=== PATIENT | female | born 1930 | race Caucasian/White ===

== ENCOUNTER 2016-10-12 02:23 | Emergency (ER) | payer MEDICARE, OTHER ==
[~2016-10-12] VITALS: Ht 167.6 cm; Wt 78.0 kg
[~2016-10-12 02:23] MED LIST: BENA1TAB2 PO; CIPR500T4 PO; GLYB1TAB2; PROVASTATIN; RISE35TA
[2016-10-12 03:25] VITALS: Ht 167.6 cm; Wt 78.0 kg
--- NOTE | 2016-10-12 04:12 | ERA ---
ER Documentation Chief Complaint Date/Time DATE: 10/12/16 TIME: 04:11 Chief Complaint left leg pain HPI The patient is a 86-year-old female, presenting to the ER because of chronic left leg, worse tonight. He is 5/10, worse with walking. She recently had angioplasty of her right leg due to similar symptoms and is awaiting to have angioplasty on the left leg. She denies fever, chills, neck pain, chest pain, abdominal pain, vomiting, dysuria, diarrhea, constipation. He does not smoke nor drink Past medical history: Hypertension, diabetes mellitus, CAD, PAD Past surgical history: CABG ROS All systems reviewed and are negative except as per history of present illness. Medications Home Meds Active Scripts Hydrocodone/Acetaminophen (Santee 5-325 Tablet) 1 Each Tablet, 1 TAB PO Q6H Y for PAIN, #7 TAB Prov:FREEMAN ADHIKARI MD 10/12/16 Reported Medications Ciprofloxacin Hcl* (Ciprofloxacin Hcl*) 500 Mg Tablet, 1 TAB PO BID 07/26/12 Benazepril/Hydrochlorothiazide (Benazepril-Hctz 10-12.5 Mg Tab) 1 Tab Tablet, 1 TAB PO DAILY 04/13/12 [Provastatin] No Conflict Check 10/22/10 Glyburide, Micro-Metformin Hcl (Glyburide-Metformin) 1 Tab Tablet 10/22/10 Risedronate Sodium* (Actonel*) 35 Mg Tablet 10/22/10 Allergies Allergies: Coded Allergies: No Known Allergy (Verified , 09/24/13) PMhx/Soc History of Surgery: No Anesthesia Reaction: No Hx Neurological Disorder: No Hx Respiratory Disorders: No Hx Cardiac Disorders: Yes (diabetis, hypercholesteral) Hx Psychiatric Problems: Yes (Depression) Hx Miscellaneous Medical Probl: Yes (Diabetes, High cholesterol) Hx Alcohol Use: No Hx Substance Use: No Hx Tobacco Use: No Physical Exam Vitals Vital Signs Date Time Temp Pulse Resp B/P Pulse Ox O2 Delivery O2 Flow Rate FiO2 10/12/16 02:30 98.6 96 18 162/88 96 Physical Exam Const: No acute distress. Head: Atraumatic. Eyes: Normal Conjunctiva. ENT: Normal External Ears, Nose and Mouth. Neck: Full range of motion. No meningismus. Resp: Clear to auscultation bilaterally. Cardio: Regular rate and rhythm, no murmurs. Abd: Soft, non distended, normal bowel sounds, non tender. Skin: No petechiae or rashes. Back: No midline or flank tenderness. Ext: Minimal left calf discomfort, no erythema, no edema, no crepitus Neur: Awake and alert. No focal deficit Psych: Normal Mood and Affect. Results 24 hrs Current Medications Medications (Trade) Dose Ordered Sig/Curtis Route PRN Reason Start Time Stop Time Status Last Admin Dose Admin Acetaminophen/ Hydrocodone Bitart (Santee (5/325)) 1 tab ONCE ONCE PO 10/12/16 04:30 10/12/16 04:31 DC 10/12/16 04:41 Ondansetron HCl (Zofran Odt) 4 mg ONCE STAT ODT 10/12/16 04:18 10/12/16 04:20 DC 10/12/16 04:40 Procedures/[place] [id number] Radiology Main Line: [phone] DIAGNOSTIC IMAGING REPORT Patient: ELAYNE LITTLEJOHN : 1930 Age: 86 Sex: F MR #: [id number] DOS: 10/12/16 0418 Ordering MD: FREEMAN ADHIKARI MD Location: E/R Room/Bed: PROCEDURE: Ultrasound examination of the left lower extremity with Doppler. CLINICAL INDICATION: Left leg pain and swelling. TECHNIQUE: Multiple sonographic images of the left lower extremity veins were performed with underwood scale and color Doppler. COMPARISON: 10/30/2007. FINDINGS: The left common femoral, superficial femoral and popliteal veins demonstrate normal color flow, waveforms, compression and response to augmentation. There is no evidence of deep venous thrombosis. IMPRESSION: No evidence of deep venous thrombosis within the left lower extremity. .Dallas Garcia MD, MD Date Time Electronically viewed and signed by .Dallas Garcia MD, on 10/12/2016 05:39 .T/ CC: FREEMAN ADHIKARI MD MEDICAL MAKING DECISION: The patient is a 86-year-old female, presenting with acute on chronic left leg pain, most likely due to peripheral arterial disease. The differential diagnoses considered include but are not limited to DVT, cellulitis, venous sufficiency. He was treated with Santee 5 mg p.o. and Zofran ODT for nausea with good response Departure Diagnosis: Primary Impression: Pain of left leg Condition: Good Comments She was discharged with Santee I discussed the findings with the patient. I advised the patient to follow-up with the primary physician in about 1-2 days, sooner if needed and return if any concern. FREEMAN ADHIKARI MD Oct 12, 2016 04:12
[2016-10-12] MEDS ORDERED: ONDANSETRON (ODT) 4 MG TAB ODT STA (04:18)
[2016-10-12] MEDS ORDERED: HYDROCODONE/APAP (5/325) TAB PO ONE (04:30)
[2016-10-12] MEDS ORDERED: HYDR-906 PO (05:36)
--- NOTE | 2016-10-12 05:40 | RADRPT ---
PROCEDURE: Ultrasound examination of the left lower extremity with Doppler. CLINICAL INDICATION: Left leg pain and swelling. TECHNIQUE: Multiple sonographic images of the left lower extremity veins were performed with underwood scale and color Doppler. COMPARISON: 10/30/2007. FINDINGS: The left common femoral, superficial femoral and popliteal veins demonstrate normal color flow, wave forms, compression and response to augmentation. There is no evidence of deep venous thrombosis. IMPRESSION: No evidence of deep venous thrombosis within the left lower extremity. .Dallas Garcia MD, Date Time Electronically viewed and signed by .Dallas Garcia MD, on 10/12/2016 05:39 .T/
[2016-10-12 05:58] VITALS: BP 132/74; PULSE 68; RESP 20; TEMP 98.6
== END 2016-10-12 06:00 | disposition home or self-care (01) ==
LOC: E/R 02:23
DX: M79.605 Pain in left leg (principal); I10 Essential (primary) hypertension; E11.9 Type 2 diabetes mellitus without complications; I25.10 Atherosclerotic heart disease of native coronary artery without angina pectoris; Z87.891 Personal history of nicotine dependence; Z95.1 Presence of aortocoronary bypass graft; Z79.84 Long term (current) use of oral hypoglycemic drugs
CPT/HCPCS: 93971

== ENCOUNTER 2017-07-17 15:02 | Emergency (ER) | payer MEDICARE, OTHER ==
[~2017-07-17] VITALS: Wt 61.4 kg
[~2017-07-17 15:02] MED LIST changes: +HYDR-906 PO
--- NOTE | 2017-07-17 16:18 | ERD ---
ER Documentation Chief Complaint Chief Complaint R. LLE PAIN S/P TRAUMA X1 WK AGO AND DYSURIA HPI 86y/o female patient with history of well-controlled diabetes mellitus, presents to the emergency department with her son c/o bilateral hip pain after a mechanical ground-level fall 1 week ago landing on her buttocks. Pain is dull , rated 4/10, without radiation. The patient is concerned about a possible fracture. She also reports dysuria and mild incontinence for the last 3 days. Denies fever, chills, N/V/D. No history of previous episodes. Treatment attempted: Ibuprofen with mild improvement of the pain. ROS SYSTEMIC symptoms: no fever, chills, no night sweats, no weight loss EYE symptoms: No blurred vision, no eye discharge OTOLARYNGEAL symptoms: No hearing loss. No ear pain, no sore throat CARDIOVASCULAR symptoms: No chest pain or discomfort, no palpitations. PULMONARY symptoms: No dyspnea, no cough, no wheezing. GASTROINTESTINAL symptoms: No abdominal pain, no nausea, no vomiting, no diarrhea MUSCULOSKELETAL symptoms: Current HPI NEUROLOGY symptoms: No confusion, no syncope, no numbness or tingling. SKIN no rashes Medications Home Meds Active Scripts Ciprofloxacin Hcl* (Ciprofloxacin Hcl*) 500 Mg Tablet, 250 MG PO BID for 7 Days , TAB Prov:PAIGE KESSLER MD 07/17/17 Hydrocodone/Acetaminophen ([place]pton 5-325 Tablet) 1 Each Tablet, 1 TAB PO Q6H Y for PAIN, #12 TAB Prov:PAIGE KESSLER MD 07/17/17 Hydrocodone/Acetaminophen ([place] 5-325 Tablet) 1 Each Tablet, 1 TAB PO Q6H Y for PAIN, #7 TAB Prov:FREEMAN ADHIKARI MD 10/12/16 Reported Medications Ciprofloxacin Hcl* (Ciprofloxacin Hcl*) 500 Mg Tablet, 1 TAB PO BID 07/26/12 Benazepril/Hydrochlorothiazide (Benazepril-Hctz 10-12.5 Mg Tab) 1 Tab Tablet, 1 TAB PO DAILY 04/13/12 [Provastatin] No Conflict Check 10/22/10 Glyburide, Micro-Metformin Hcl (Glyburide-Metformin) 1 Tab Tablet 10/22/10 Risedronate Sodium* (Actonel*) 35 Mg Tablet 10/22/10 Allergies Allergies: Coded Allergies: No Known Allergy (Verified , 07/17/17) PMhx/Soc History of Surgery: No Anesthesia Reaction: No Hx Neurological Disorder: No Hx Respiratory Disorders: No Hx Cardiac Disorders: Yes Hx Psychiatric Problems: Yes (Depression) Hx Miscellaneous Medical Probl: Yes (Diabetes, High cholesterol) Hx Alcohol Use: No Hx Substance Use: No Hx Tobacco Use: No Physical Exam Vitals Vital Signs Date Time Temp Pulse Resp B/P Pulse Ox O2 Delivery O2 Flow Rate FiO2 07/17/17 18:28 76 18 162/73 96 Room Air 07/17/17 15:05 98.0 85 20 158/74 99 Physical Exam Patient is in no acute distress, vital signs stable. Alert and fully oriented. EYES: PERRLA, EOMI, Sclera and conjunctiva appear normal. EARS: Canals clear, tympanic membranes WNL THROAT: Normal oropharynx. NECK: Supple, No lymphadenopathy. Full ROM without pain or tenderness. HEART: RRR, no rubs, murmurs, clicks or gallops. LUNGS: Clear to auscultation. ABDOMEN: Soft, non-tender without masses or hepatosplenomegaly. EXTREMITIES: No edema bilaterally. MUSC: Mild tenderness of the sacrum. full ROM, no deformity, normal back exam Results 24 hrs Laboratory Tests Test 07/17/17 16:48 Urine Color YELLOW Urine Clarity CLEAR Urine pH 6.0 Urine Specific [place] 1.012 Urine Ketones NEGATIVEmg/dL Urine Nitrite NEGATIVEmg/dL Urine Bilirubin NEGATIVEmg/dL Urine Urobilinogen NEGATIVEmg/dL Urine Leukocyte Esterase 2+Kassandra/ul Urine Microscopic RBC 0/HPF Urine Microscopic WBC 64/HPF Urine Bacteria FEW/HPF Urine Hemoglobin NEGATIVEmg/dL Urine Glucose NEGATIVEmg/dL Urine Total Protein NEGATIVEmg/dl Current Medications Medications (Trade) Dose Ordered Sig/Curtis Route PRN Reason Start Time Stop Time Status Last Admin Dose Admin Ketorolac Tromethamine (Toradol) 15 mg ONCE STAT IM 07/17/17 16:27 07/17/17 16:31 DC 07/17/17 16:38 [place] [id number] Radiology Main Line: [phone] DIAGNOSTIC IMAGING REPORT Patient: EALYNE LITTLEJOHN : 1930 Age: 86 Sex: F MR #: [id number] DOS: 07/17/17 1627 Ordering MD: PAIGE KESSLER MD Location: FTE Room/Bed: PROCEDURE: XR Pelvis. CLINICAL INDICATION: Pelvic pain. History of fall TECHNIQUE: Single AP view of the pelvis was obtained. COMPARISON: 12/04/2007 FINDINGS: Diffuse osteopenia is seen. No acute displaced fracture or dislocation is seen. 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 Degenerative changes in the lower lumbar spine and sacroiliac joints is seen. The soft tissue structures are intact. Vascular calcifications are seen. IMPRESSION: 1. No acute displaced fracture or dislocation. 2. 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 RPTAT: HPNM Physician Fly Date Time Electronically viewed and signed by Nick Ward Physician on 07/17/2017 17 :38 / CC: PAIGE KESSLER MD Procedures/MDM 86y/o female patient with history of type 2 diabetes mellitus, presents to the ED c/o hip pain and dysuria for 3 days. Vital signs stable, Physical exam unremarkable. Differential diagnosis include but not limited to: UTI, hip contusion, ligament/tendon injury, arthrosis, arthritis, less likely hip fracture. Pertinent Data: Labs: UA: With pyuria, 2+ leuk adilene X-Rays: IMPRESSION: 1. No acute displaced fracture or dislocation. 2. 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 Physical examination and clinical presentation consistent most likely with UTI and hip pain secondary to fall without evidence of fracture. During the ED course the patient received treatment with Toradol IM presenting overall improvement of the symptoms. Results and clinical impression discussed with with the patient who agrees with management. The patient is stable to be treated outpatient and will be discharged home with a Rx for ciprofloxacin and Hampton as needed for severe pain. Side effects of prescribed narcotic medications (drowsiness, constipation, habituation) were reviewed. If symptoms persist, worsen or new symptoms develop, then patient is instructed to follow-up with the primary care provider. If the patient is unable to see the primary care provider, then return to the ED immediately. Departure Diagnosis: Primary Impression: UTI (urinary tract infection) Additional Impressions: Hip pain, acute Fall Condition: Stable Additional Instructions: Muchas tim por [facility] para harry servicio. Esperamos que en harry visita a la kelsey de emergencia harry problema medico haya sido solucionado y que se sienta mucho mejor. Para estar seguros que harry mejoria sigue en proceso, le pedimos el favor de hacer nelda aminata de seguimiento medico con harry doctor primario en los proximos 2-4 coles. Lleve con usted estos documentos y las medicinas recetadas. Si lorene sintomas empeoran y no puede flavio a harry doctor, por favor regrese a kelsey de emergencia. En booker que usted no tenga un mdico de atencin primaria: Llame al mdico o clnica comunitaria de referencia que aparece abajo ros las horas de consultorio para hacer nelda aminata para que le vean. CLINICAS: [facility] [phone] [facility] [phone] [address] [facility] [phone] [facility] [phone] [place] [id number] [phone] [facility]. [phone] PAIGE ROA MD Jul 17, 2017 16:17
--- NOTE | 2017-07-17 16:18 | ERD ---
ER Documentation Chief Complaint Chief Complaint R. LLE PAIN S/P TRAUMA X1 WK AGO AND DYSURIA HPI 86y/o female patient with history of well-controlled diabetes mellitus, presents to the emergency department with her son c/o bilateral hip pain after a mechanical ground-level fall 1 week ago landing on her buttocks. Pain is dull , rated 4/10, without radiation. The patient is concerned about a possible fracture. She also reports dysuria and mild incontinence for the last 3 days. Denies fever, chills, N/V/D. No history of previous episodes. Treatment attempted: Ibuprofen with mild improvement of the pain. ROS SYSTEMIC symptoms: no fever, chills, no night sweats, no weight loss EYE symptoms: No blurred vision, no eye discharge OTOLARYNGEAL symptoms: No hearing loss. No ear pain, no sore throat CARDIOVASCULAR symptoms: No chest pain or discomfort, no palpitations. PULMONARY symptoms: No dyspnea, no cough, no wheezing. GASTROINTESTINAL symptoms: No abdominal pain, no nausea, no vomiting, no diarrhea MUSCULOSKELETAL symptoms: Current HPI NEUROLOGY symptoms: No confusion, no syncope, no numbness or tingling. SKIN no rashes Medications Home Meds Active Scripts Ciprofloxacin Hcl* (Ciprofloxacin Hcl*) 500 Mg Tablet, 250 MG PO BID for 7 Days , TAB Prov:PAIGE KESSLER MD 07/17/17 Hydrocodone/Acetaminophen ([place] 5-325 Tablet) 1 Each Tablet, 1 TAB PO Q6H Y for PAIN, #12 TAB Prov:PAIGE KESSLER MD 07/17/17 Hydrocodone/Acetaminophen ([place] 5-325 Tablet) 1 Each Tablet, 1 TAB PO Q6H Y for PAIN, #7 TAB Prov:FREEMAN ADHIKARI MD 10/12/16 Reported Medications Ciprofloxacin Hcl* (Ciprofloxacin Hcl*) 500 Mg Tablet, 1 TAB PO BID 07/26/12 Benazepril/Hydrochlorothiazide (Benazepril-Hctz 10-12.5 Mg Tab) 1 Tab Tablet, 1 TAB PO DAILY 04/13/12 [Provastatin] No Conflict Check 10/22/10 Glyburide, Micro-Metformin Hcl (Glyburide-Metformin) 1 Tab Tablet 10/22/10 Risedronate Sodium* (Actonel*) 35 Mg Tablet 10/22/10 Allergies Allergies: Coded Allergies: No Known Allergy (Verified , 07/17/17) PMhx/Soc History of Surgery: No Anesthesia Reaction: No Hx Neurological Disorder: No Hx Respiratory Disorders: No Hx Cardiac Disorders: Yes Hx Psychiatric Problems: Yes (Depression) Hx Miscellaneous Medical Probl: Yes (Diabetes, High cholesterol) Hx Alcohol Use: No Hx Substance Use: No Hx Tobacco Use: No Physical Exam Vitals Vital Signs Date Time Temp Pulse Resp B/P Pulse Ox O2 Delivery O2 Flow Rate FiO2 07/17/17 18:28 76 18 162/73 96 Room Air 07/17/17 15:05 98.0 85 20 158/74 99 Physical Exam Patient is in no acute distress, vital signs stable. Alert and fully oriented. EYES: PERRLA, EOMI, Sclera and conjunctiva appear normal. EARS: Canals clear, tympanic membranes WNL THROAT: Normal oropharynx. NECK: Supple, No lymphadenopathy. Full ROM without pain or tenderness. HEART: RRR, no rubs, murmurs, clicks or gallops. LUNGS: Clear to auscultation. ABDOMEN: Soft, non-tender without masses or hepatosplenomegaly. EXTREMITIES: No edema bilaterally. MUSC: Mild tenderness of the sacrum. full ROM, no deformity, normal back exam Results 24 hrs Laboratory Tests Test 07/17/17 16:48 Urine Color YELLOW Urine Clarity CLEAR Urine pH 6.0 Urine Specific [place] 1.012 Urine Ketones NEGATIVEmg/dL Urine Nitrite NEGATIVEmg/dL Urine Bilirubin NEGATIVEmg/dL Urine Urobilinogen NEGATIVEmg/dL Urine Leukocyte Esterase 2+Kassandra/ul Urine Microscopic RBC 0/HPF Urine Microscopic WBC 64/HPF Urine Bacteria FEW/HPF Urine Hemoglobin NEGATIVEmg/dL Urine Glucose NEGATIVEmg/dL Urine Total Protein NEGATIVEmg/dl Current Medications Medications (Trade) Dose Ordered Sig/Curtis Route PRN Reason Start Time Stop Time Status Last Admin Dose Admin Ketorolac Tromethamine (Toradol) 15 mg ONCE STAT IM 07/17/17 16:27 07/17/17 16:31 DC 07/17/17 16:38 [place] [id number] Radiology Main Line: [phone] DIAGNOSTIC IMAGING REPORT Patient: ELAYNE LITTLEJOHN : 1930 Age: 86 Sex: F MR #: [id number] DOS: 07/17/17 1627 Ordering MD: PAIGE KESSLER MD Location: FTE Room/Bed: PROCEDURE: XR Pelvis. CLINICAL INDICATION: Pelvic pain. History of fall TECHNIQUE: Single AP view of the pelvis was obtained. COMPARISON: 12/04/2007 FINDINGS: Diffuse osteopenia is seen. No acute displaced fracture or dislocation is seen. 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 Degenerative changes in the lower lumbar spine and sacroiliac joints is seen. The soft tissue structures are intact. Vascular calcifications are seen. IMPRESSION: 1. No acute displaced fracture or dislocation. 2. 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 RPTAT: HPNM Physician Fly Date Time Electronically viewed and signed by Nick Ward Physician on 07/17/2017 17 :38 / CC: PAIGE KESSLER MD Procedures/MDM 86y/o female patient with history of type 2 diabetes mellitus, presents to the ED c/o hip pain and dysuria for 3 days. Vital signs stable, Physical exam unremarkable. Differential diagnosis include but not limited to: UTI, hip contusion, ligament/tendon injury, arthrosis, arthritis, less likely hip fracture. Pertinent Data: Labs: UA: With pyuria, 2+ leuk adilene X-Rays: IMPRESSION: 1. No acute displaced fracture or dislocation. 2. 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 Physical examination and clinical presentation consistent most likely with UTI and hip pain secondary to fall without evidence of fracture. During the ED course the patient received treatment with Toradol IM presenting overall improvement of the symptoms. Results and clinical impression discussed with with the patient who agrees with management. The patient is stable to be treated outpatient and will be discharged home with a Rx for ciprofloxacin and [place] as needed for severe pain. Side effects of prescribed narcotic medications (drowsiness, constipation, habituation) were reviewed. If symptoms persist, worsen or new symptoms develop, then patient is instructed to follow-up with the primary care provider. If the patient is unable to see the primary care provider, then return to the ED immediately. Departure Diagnosis: Primary Impression: UTI (urinary tract infection) Additional Impressions: Hip pain, acute Fall Condition: Stable Additional Instructions: Muchas tim por [facility] para harry servicio. Esperamos que en harry visita a la kelsey de emergencia harry problema medico haya sido solucionado y que se sienta mucho mejor. Para estar seguros que harry mejoria sigue en proceso, le pedimos el favor de hacer nelda aminata de seguimiento medico con harry doctor primario en los proximos 2-4 coles. Lleve con usted estos documentos y las medicinas recetadas. Si lorene sintomas empeoran y no puede flavio a harry doctor, por favor regrese a kelsey de emergencia. En booker que usted no tenga un mdico de atencin primaria: Llame al mdico o clnica comunitaria de referencia que aparece abajo ros las horas de consultorio para hacer nelda aminata para que le vean. CLINICAS: [facility] [phone] [facility] [phone] [address] [facility] [phone] [facility] [phone] [place] [phone] [facility]. [phone] PAIGE ROA MD Jul 17, 2017 16:17
--- NOTE | 2017-07-17 16:18 | ERD ---
ER Documentation Chief Complaint Chief Complaint R. LLE PAIN S/P TRAUMA X1 WK AGO AND DYSURIA HPI 86y/o female patient with history of well-controlled diabetes mellitus, presents to the emergency department with her son c/o bilateral hip pain after a mechanical ground-level fall 1 week ago landing on her buttocks. Pain is dull , rated 4/10, without radiation. The patient is concerned about a possible fracture. She also reports dysuria and mild incontinence for the last 3 days. Denies fever, chills, N/V/D. No history of previous episodes. Treatment attempted: Ibuprofen with mild improvement of the pain. ROS SYSTEMIC symptoms: no fever, chills, no night sweats, no weight loss EYE symptoms: No blurred vision, no eye discharge OTOLARYNGEAL symptoms: No hearing loss. No ear pain, no sore throat CARDIOVASCULAR symptoms: No chest pain or discomfort, no palpitations. PULMONARY symptoms: No dyspnea, no cough, no wheezing. GASTROINTESTINAL symptoms: No abdominal pain, no nausea, no vomiting, no diarrhea MUSCULOSKELETAL symptoms: Current HPI NEUROLOGY symptoms: No confusion, no syncope, no numbness or tingling. SKIN no rashes Medications Home Meds Active Scripts Ciprofloxacin Hcl* (Ciprofloxacin Hcl*) 500 Mg Tablet, 250 MG PO BID for 7 Days , TAB Prov:PAIGE KESSLER MD 07/17/17 Hydrocodone/Acetaminophen ([place] 5-325 Tablet) 1 Each Tablet, 1 TAB PO Q6H Y for PAIN, #12 TAB Prov:PAIGE KESSLER MD 07/17/17 Hydrocodone/Acetaminophen ([place] 5-325 Tablet) 1 Each Tablet, 1 TAB PO Q6H Y for PAIN, #7 TAB Prov:FREEMAN ADHIKARI MD 10/12/16 Reported Medications Ciprofloxacin Hcl* (Ciprofloxacin Hcl*) 500 Mg Tablet, 1 TAB PO BID 07/26/12 Benazepril/Hydrochlorothiazide (Benazepril-Hctz 10-12.5 Mg Tab) 1 Tab Tablet, 1 TAB PO DAILY 04/13/12 [Provastatin] No Conflict Check 10/22/10 Glyburide, Micro-Metformin Hcl (Glyburide-Metformin) 1 Tab Tablet 10/22/10 Risedronate Sodium* (Actonel*) 35 Mg Tablet 10/22/10 Allergies Allergies: Coded Allergies: No Known Allergy (Verified , 07/17/17) PMhx/Soc History of Surgery: No Anesthesia Reaction: No Hx Neurological Disorder: No Hx Respiratory Disorders: No Hx Cardiac Disorders: Yes Hx Psychiatric Problems: Yes (Depression) Hx Miscellaneous Medical Probl: Yes (Diabetes, High cholesterol) Hx Alcohol Use: No Hx Substance Use: No Hx Tobacco Use: No Physical Exam Vitals Vital Signs Date Time Temp Pulse Resp B/P Pulse Ox O2 Delivery O2 Flow Rate FiO2 07/17/17 18:28 76 18 162/73 96 Room Air 07/17/17 15:05 98.0 85 20 158/74 99 Physical Exam Patient is in no acute distress, vital signs stable. Alert and fully oriented. EYES: PERRLA, EOMI, Sclera and conjunctiva appear normal. EARS: Canals clear, tympanic membranes WNL THROAT: Normal oropharynx. NECK: Supple, No lymphadenopathy. Full ROM without pain or tenderness. HEART: RRR, no rubs, murmurs, clicks or gallops. LUNGS: Clear to auscultation. ABDOMEN: Soft, non-tender without masses or hepatosplenomegaly. EXTREMITIES: No edema bilaterally. MUSC: Mild tenderness of the sacrum. full ROM, no deformity, normal back exam Results 24 hrs Laboratory Tests Test 07/17/17 16:48 Urine Color YELLOW Urine Clarity CLEAR Urine pH 6.0 Urine Specific [place] 1.012 Urine Ketones NEGATIVEmg/dL Urine Nitrite NEGATIVEmg/dL Urine Bilirubin NEGATIVEmg/dL Urine Urobilinogen NEGATIVEmg/dL Urine Leukocyte Esterase 2+Kassandra/ul Urine Microscopic RBC 0/HPF Urine Microscopic WBC 64/HPF Urine Bacteria FEW/HPF Urine Hemoglobin NEGATIVEmg/dL Urine Glucose NEGATIVEmg/dL Urine Total Protein NEGATIVEmg/dl Current Medications Medications (Trade) Dose Ordered Sig/Curtis Route PRN Reason Start Time Stop Time Status Last Admin Dose Admin Ketorolac Tromethamine (Toradol) 15 mg ONCE STAT IM 07/17/17 16:27 07/17/17 16:31 DC 07/17/17 16:38 [place] [id number] Radiology Main Line: [phone] DIAGNOSTIC IMAGING REPORT Patient: ELAYNE LITTLEJOHN : 1930 Age: 86 Sex: F MR #: [id number] DOS: 07/17/17 1627 Ordering MD: PAIGE KESSLER MD Location: [facility]TE Room/Bed: PROCEDURE: XR Pelvis. CLINICAL INDICATION: Pelvic pain. History of fall TECHNIQUE: Single AP view of the pelvis was obtained. COMPARISON: 12/04/2007 FINDINGS: Diffuse osteopenia is seen. No acute displaced fracture or dislocation is seen. 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 Degenerative changes in the lower lumbar spine and sacroiliac joints is seen. The soft tissue structures are intact. Vascular calcifications are seen. IMPRESSION: 1. No acute displaced fracture or dislocation. 2. 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 RPTAT: HPNM Physician Fly Date Time Electronically viewed and signed by Nick Ward Physician on 07/17/2017 17 :38 / CC: PAIGE KESSLER MD Procedures/MDM 86y/o female patient with history of type 2 diabetes mellitus, presents to the ED c/o hip pain and dysuria for 3 days. Vital signs stable, Physical exam unremarkable. Differential diagnosis include but not limited to: UTI, hip contusion, ligament/tendon injury, arthrosis, arthritis, less likely hip fracture. Pertinent Data: Labs: UA: With pyuria, 2+ leuk adilene X-Rays: IMPRESSION: 1. No acute displaced fracture or dislocation. 2. 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 Physical examination and clinical presentation consistent most likely with UTI and hip pain secondary to fall without evidence of fracture. During the ED course the patient received treatment with Toradol IM presenting overall improvement of the symptoms. Results and clinical impression discussed with with the patient who agrees with management. The patient is stable to be treated outpatient and will be discharged home with a Rx for ciprofloxacin and [place] as needed for severe pain. Side effects of prescribed narcotic medications (drowsiness, constipation, habituation) were reviewed. If symptoms persist, worsen or new symptoms develop, then patient is instructed to follow-up with the primary care provider. If the patient is unable to see the primary care provider, then return to the ED immediately. Departure Diagnosis: Primary Impression: UTI (urinary tract infection) Additional Impressions: Hip pain, acute Fall Condition: Stable Additional Instructions: Muchas tim por [facility] para harry servicio. Esperamos que en harry visita a la kelsey de emergencia harry problema medico haya sido solucionado y que se sienta mucho mejor. Para estar seguros que harry mejoria sigue en proceso, le pedimos el favor de hacer nelda aminata de seguimiento medico con harry doctor primario en los proximos 2-4 coles. Lleve con usted estos documentos y las medicinas recetadas. Si lorene sintomas empeoran y no puede flavio a harry doctor, por favor regrese a kelsey de emergencia. En booker que usted no tenga un mdico de atencin primaria: Llame al mdico o clnica comunitaria de referencia que aparece abajo ros las horas de consultorio para hacer nelda aminata para que le vean. CLINICAS: [facility] [phone] [facility] [phone] [facility] [phone] [facility] [phone] [place] [id number] [phone] [facility]. [phone] PAIGE ROA MD Jul 17, 2017 16:17
[2017-07-17] MEDS ORDERED: KETOROLAC 15 MG INJ IM STA (16:27)
[2017-07-17] MEDS ORDERED: HYDR-906 PO (17:37)
--- NOTE | 2017-07-17 17:38 | RADRPT ---
PROCEDURE: XR Pelvis. CLINICAL INDICATION: Pelvic pain. History of fall TECHNIQUE: Single AP view of the pelvis was obtained. COMPARISON: 12/04/2007 FINDINGS: Diffuse osteopenia is seen. No acute displaced fracture or dislocation is seen. Moderate to severe o steoarthritis in the bilateral hips is seen. Degenerative changes in the lower lumbar spine and sacr oiliac joints is seen. The soft tissue structures are intact. Vascular calcifications are seen. IMPRESSION: 1. No acute displaced fracture or dislocation. 2. 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 RPTAT: HPNM Physician Fly Date Time Electronically viewed and signed by Physician Fly on 07/17/2017 17:38 /
[2017-07-17] MEDS ORDERED: CIPR500T4 PO (18:07)
[2017-07-17 18:28] VITALS: BP 162/73; PULSE 76; RESP 18
== END 2017-07-17 18:28 | disposition home or self-care (01) ==
LOC: FTE 15:02
DX: N39.0 Urinary tract infection, site not specified (principal); M25.552 Pain in left hip; E11.9 Type 2 diabetes mellitus without complications; Z79.84 Long term (current) use of oral hypoglycemic drugs
CPT/HCPCS: 72170; 81001; 96372; 99284; J1885

== ENCOUNTER 2017-08-25 13:08 | Emergency (ER) | payer OTHER, MEDICAID ==
[~2017-08-25] VITALS: Ht 157.5 cm; Wt 54.4 kg
[2017-08-25 13:16] VITALS: Ht 157.5 cm; Wt 54.4 kg
--- NOTE | 2017-08-25 15:53 | RADRPT ---
PROCEDURE: Left foot series CLINICAL INDICATION: Left foot pain. History of remote trauma TECHNIQUE: AP, oblique, and lateral views of the left foot were obtained. COMPARISON: None FINDINGS: No acute fracture or dislocations are seen. The osseous structures are well mineralized. The artic ular surfaces are normal. No soft tissue abnormalities are seen. Atherosclerotic vascular disease i s seen. IMPRESSION: No evidence of an acute abnormality. RPTAT: HPNM Physician Fly Date Time Electronically viewed and signed by Physician Fly on 08/25/2017 15:52 /
[2017-08-25] MEDS ORDERED: ACET500C5 PO (16:04)
--- NOTE | 2017-08-25 16:06 | ERD ---
ER Documentation Chief Complaint Chief Complaint sent for left foot x-ray by pmd HPI 76-year-old female presents with left foot pain for last 2 months. It started after a minor fall. The pain is in left heel. She sent by her primary doctor as they do not have x-rays. She thinks it may be a foreign object in her foot. She has restricted range of motion or weakness, erythema. ROS All systems reviewed and are negative except as per history of present illness. Medications Home Meds Active Scripts Acetaminophen* (Tylophen*) 500 Mg Capsule, 1 CAP PO Q6H Y for PAIN AND OR ELEVATED TEMP, #20 CAP Prov:OSWALD SOW MD 08/25/17 Ciprofloxacin Hcl* (Ciprofloxacin Hcl*) 500 Mg Tablet, 250 MG PO BID for 7 Days , TAB Prov:PAIGE KESSLER MD 07/17/17 Hydrocodone/Acetaminophen ([place] 5-325 Tablet) 1 Each Tablet, 1 TAB PO Q6H Y for PAIN, #12 TAB Prov:PAIGE KESSLER MD 07/17/17 Hydrocodone/Acetaminophen ([place] 5-325 Tablet) 1 Each Tablet, 1 TAB PO Q6H Y for PAIN, #7 TAB Prov:FREEMAN ADHIKARI MD 10/12/16 Reported Medications Ciprofloxacin Hcl* (Ciprofloxacin Hcl*) 500 Mg Tablet, 1 TAB PO BID 07/26/12 Benazepril/Hydrochlorothiazide (Benazepril-Hctz 10-12.5 Mg Tab) 1 Tab Tablet, 1 TAB PO DAILY 04/13/12 [Provastatin] No Conflict Check 10/22/10 Glyburide, Micro-Metformin Hcl (Glyburide-Metformin) 1 Tab Tablet 10/22/10 Risedronate Sodium* (Actonel*) 35 Mg Tablet 10/22/10 Allergies Allergies: Coded Allergies: No Known Allergy (Verified , 07/17/17) PMhx/Soc History of Surgery: No Anesthesia Reaction: No Hx Neurological Disorder: No Hx Respiratory Disorders: No Hx Cardiac Disorders: Yes Hx Psychiatric Problems: Yes (Depression) Hx Miscellaneous Medical Probl: Yes (Diabetes, High cholesterol) Hx Alcohol Use: No Hx Substance Use: No Hx Tobacco Use: No Smoking Status: Never smoker Physical Exam Vitals Vital Signs Date Time Temp Pulse Resp B/P Pulse Ox O2 Delivery O2 Flow Rate FiO2 08/25/17 13:16 98.7 90 18 140/59 98 Physical Exam Const: [] Alert, [id number]. Head: Atraumatic Eyes: Normal Conjunctiva ENT: Normal External Ears, Nose and Mouth. Neck: Full range of motion..~ No meningismus. Resp: Clear to auscultation bilaterally Cardio: Regular rate and rhythm, no murmurs Abd: Soft, non tender, non distended. Normal bowel sounds Skin: No petechiae or rashes Back: No midline or flank tenderness Ext: No cyanosis, or edema. Tenderness in the heel without erythema, warmth , deformities. There is possibly a small superficial splinter appearing foreign body without erythema. there is no appreciable ankle tenderness. Is no restricted range of motion or weakness. Neur: Awake and alert Psych: Normal Mood and Affect Procedures/MDM X-ray left foot 3V Interpreted by me: Bones: [No fracture] Joints: [No dislocation] Foreign body: [None] impression-normal left foot Via sterile technique a small splinter type foreign body was removed from the left heel superficially. Wound was dressed and patient tolerated procedure well. Patient presents with left heel pain for 2 months after minor trauma. She has signs and symptoms of plantar fasciitis without evidence o, cellulitis, fracture , dislocation, deficits or ischemia. She will be treated with Tylenol, return cautions and primary care follow-up. The patient was stable with no new complaints during the ER course. Clinically, there is no current evidence to suggest meningitis, sepsis, acute abdomen, pneumonia, acute coronary syndrome, pulmonary embolism, or any other emergent condition appearing to require further evaluation or hospitalization. The patient should certainly return for any new or worsening symptoms per the aftercare instructions. They should otherwise follow-up with her primary care doctor for reevaluation this week. Departure Diagnosis: Primary Impression: Foot pain Laterality: left Qualified Code: M79.672 - Left foot pain Additional Impression: Splinter Condition: Stable Patient Instructions: Plantar Fasciitis Referrals: KAVEH FABIAN MD (PCP) Additional Instructions: X-ray normal. Stretch at home. Follow-up with primary doctor possibly regulatory assistant. Return for fevers, redness, new symptoms. OSWALD SOW MD Aug 25, 2017 16:06
== END 2017-08-25 17:19 | disposition home or self-care (01) ==
LOC: FTE 13:08
DX: M79.672 Pain in left foot (principal); E11.9 Type 2 diabetes mellitus without complications; Z79.84 Long term (current) use of oral hypoglycemic drugs

== ENCOUNTER 2017-10-17 20:16 | Emergency (ER) | END 2017-10-18 04:30 | disposition home or self-care (01) ==

== ENCOUNTER 2018-06-21 11:16 | Emergency (ER) | END 2018-06-21 15:22 | disposition home or self-care (01) ==

== ENCOUNTER 2018-10-30 14:04 | Emergency (ER) | payer MEDICAID, OTHER ==
[~2018-10-30] VITALS: Wt 49.8 kg
[~2018-10-30 14:04] MED LIST changes: +ACET500C5 PO; +CEPH-443 PO; +FAMO-96 PO; +HYDR-4011 PO; -HYDR-906 PO
[2018-10-30 14:59] VITALS: BP 215/93; PULSE 87; RESP 20
== END 2018-10-30 18:28 | disposition left against medical advice (07) ==
LOC: E/R 14:04
DX: Z53.21 Procedure and treatment not carried out due to patient leaving prior to being seen by health care provider (principal)

== ENCOUNTER 2018-11-01 11:46 | Emergency (ER) | payer OTHER, MEDICAID ==
[~2018-11-01] VITALS: Wt 51.2 kg
[2018-11-01] MEDS ORDERED: SOD CHLORIDE 0.9% 1,000 ML IV STA ×2 (12:34→12:45)
[2018-11-01] MEDS ORDERED: SITA100T11 PO (12:34)
[2018-11-01] MEDS ORDERED: METF500T24 PO (12:34)
[2018-11-01] MEDS ORDERED: ATOR20TA38 PO (12:34)
[2018-11-01] MEDS ORDERED: ASPIRIN 325 MG TAB PO STA (12:34)
[2018-11-01] MEDS ORDERED: CLOP75TA27 PO (12:34)
[2018-11-01] MEDS ORDERED: LISI-313 PO (12:35)
[2018-11-01] MEDS ORDERED: CHOL100062 PO (12:35)
--- NOTE | 2018-11-01 13:10 | ERD ---
ER Documentation Chief Complaint Chief Complaint ABD PAIN X 2 DAYS WITH DIARRHEA TODAY HPI This is a 88-year-old female who is complaining of 1 month history of diarrhea. She says some days she has no diarrhea and other days she has 4-5 bouts of watery stool that is nonbloody. She has occasional right mid abdominal pain with it as well. No fever no back pain no hematuria dysuria no chest pain shortness of breath or nausea vomiting. Pain is not worse after eating at all. ROS All systems reviewed and are negative except as per history of present illness. Medications Home Meds Active Scripts Metronidazole* (Flagyl*) 500 Mg Tablet, 500 MG PO TID for 7 Days, TAB Prov:KIRBY AYALA DO 11/01/18 Ciprofloxacin Hcl* (Ciprofloxacin Hcl*) 500 Mg Tablet, 500 MG PO BID for 7 Days, TAB Prov:KIRBY AYALA DO 11/01/18 Dicyclomine HCl (Dicyclomine HCl) 10 Mg Capsule, 20 MG PO TID PRN for ABDOMINAL CRAMPING, #20 CAP Prov:KIRBY AYALA DO 11/01/18 Reported Medications Lisinopril* (Lisinopril*) 5 Mg Tablet, 5 MG PO DAILY, #30 TAB 11/01/18 Cholecalciferol* (Vitamin D3*) 1,000 Unit Tablet, 1000 UNIT PO DAILY, TAB 11/01/18 Clopidogrel Bisulfate (Clopidogrel) 75 Mg Tablet, 75 MG PO DAILY, #30 TAB 11/01/18 Atorvastatin Calcium* (Atorvastatin Calcium*) 20 Mg Tablet, 20 MG PO QHS, #30 TAB 11/01/18 Sitagliptin* (Januvia*) 100 Mg Tablet, 100 MG PO DAILY, #30 TAB 11/01/18 Metformin Hcl* (Metformin Hcl*) 500 Mg Tablet, 500 MG PO WITH MEALS, #90 TAB 11/01/18 Discontinued Reported Medications Ciprofloxacin Hcl* (Ciprofloxacin Hcl*) 500 Mg Tablet, 1 TAB PO BID 07/26/12 Benazepril/Hydrochlorothiazide (Benazepril-Hctz 10-12.5 Mg Tab) 1 Tab Tablet, 1 TAB PO DAILY 04/13/12 [Provastatin] No Conflict Check 10/22/10 Glyburide, Micro-Metformin Hcl (Glyburide-Metformin) 1 Tab Tablet 10/22/10 Risedronate Sodium* (Actonel*) 35 Mg Tablet 10/22/10 Discontinued Scripts Cephalexin* (Keflex*) 500 Mg Capsule, 500 MG PO QID for 10 Days, CAP Prov:RANDALL PERKINS MD 06/21/18 Famotidine* (Pepcid*) 20 Mg Tablet, 20 MG PO BID for 30 Days, TAB Prov:RANDALL PERKINS MD 06/21/18 Acetaminophen* (Tylophen*) 500 Mg Capsule, 1 CAP PO Q6H PRN for PAIN AND OR ELEVATED TEMP, #20 CAP Prov:OSWALD SOW MD 08/25/17 Ciprofloxacin Hcl* (Ciprofloxacin Hcl*) 500 Mg Tablet, 250 MG PO BID for 7 Days, TAB Prov:PAIGE KESSLER MD 07/17/17 Hydrocodone/Acetaminophen ([place] 5-325 Tablet) 1 Each Tablet, 1 TAB PO Q6H PRN for PAIN, #12 TAB Prov:PAIGE KESSLER MD 07/17/17 Hydrocodone/Acetaminophen ([place] 5-325 Tablet) 1 Each Tablet, 1 TAB PO Q6H PRN for PAIN, #7 TAB Prov:FREEMAN ADHIKARI MD 10/12/16 Allergies Allergies: Coded Allergies: No Known Allergy (Verified , 07/17/17) PMhx/Soc History of Surgery: Yes (, heart surgery) Anesthesia Reaction: No Hx Neurological Disorder: No Hx Respiratory Disorders: No Hx Cardiac Disorders: No Hx Psychiatric Problems: Yes (Depression) Hx Miscellaneous Medical Probl: Yes (Diabetes, High cholesterol) Hx Alcohol Use: No Hx Substance Use: No Hx Tobacco Use: No Smoking Status: Never smoker FmHx Family History: No coronary disease Physical Exam Vitals Vital Signs Date Temp Pulse Resp B/P (MAP) Pulse Ox O2 O2 Flow FiO2 Time Delivery Rate 11/01/18 97.7 80 18 149/70 99 11:54 (96) Physical Exam Const: Well-developed, well-nourished Head: Atraumatic, normocephalic Eyes: Normal Conjunctiva, PERRLA, EOMI, normal sclera, no nystagmus ENT: Normal External Ears, Nose and Mouth, moist mucus membranes. Neck: Full range of motion. No meningismus, no lymphadenopathy. Resp: Clear to auscultation bilaterally, no wheezing, rhonchi, rales Cardio: Regular rate and rhythm, no murmurs, S1 S2 present Abd: Soft, minimal right abdominal tenderness, non distended. Normal bowel sounds, no guarding or rebound, no pulsitile abdominal masses or bruits Skin: No petechiae or rashes, no ecchymosis , no maculopapular rash Back: No midline or flank tenderness Ext: No cyanosis, or edema, FROM x 4, normal inspection, neurovascularly intact x 4 Neur: Awake and alert, STR 5/5 x 4, sensation intact x 4, no focal findings, cerebellum intact Psych: Normal Mood and Affect Result Diagram: 11/01/18 1255 11/01/18 1255 Results 24 hrs Laboratory Tests Test 11/01/18 12:55 White Blood Count 6.5 10^3/ul Red Blood Count 3.55 10^6/ul Hemoglobin 10.0 g/dl Hematocrit 30.8 % Mean Corpuscular Volume 86.8 fl Mean Corpuscular Hemoglobin 28.2 pg Mean Corpuscular Hemoglobin Concent 32.5 g/dl Red Cell Distribution Width 12.4 % Platelet Count 289 10^3/UL Mean Platelet Volume 9.5 fl Immature Granulocytes % 0.300 % Neutrophils % 54.6 % Lymphocytes % 31.2 % Monocytes % 10.4 % Eosinophils % 2.9 % Basophils % 0.6 % Nucleated Red Blood Cells % 0.0 /100WBC Immature Granulocytes # 0.020 10^3/ul Neutrophils # 3.5 10^3/ul Lymphocytes # 2.0 10^3/ul Monocytes # 0.7 10^3/ul Eosinophils # 0.2 10^3/ul Basophils # 0.0 10^3/ul Nucleated Red Blood Cells # 0.0 10^3/ul Sodium Level 137 mmol/L Potassium Level 4.8 mmol/L Chloride Level 100 mmol/L Carbon Dioxide Level 25 mmol/L Anion Gap 12 Blood Urea Nitrogen 14 mg/dl Creatinine 0.89 mg/dl Est Glomerular Filtrat Rate mL/min mL/min Glucose Level 132 mg/dl Calcium Level 9.4 mg/dl Total Bilirubin 0.0 mg/dl Direct Bilirubin 0.00 mg/dl Indirect Bilirubin 0.0 mg/dl Aspartate Amino Transf (AST/SGOT) 21 IU/L Alanine Aminotransferase (ALT/SGPT) 7 IU/L Alkaline Phosphatase 83 IU/L Total Protein 6.9 g/dl Albumin 3.9 g/dl Globulin 3.00 g/dl Albumin/Globulin Ratio 1.30 Lipase 65 U/L Current Medications Medications Dose Sig/Curtis Start Time Status Last (Trade) Ordered Route PRN Stop Time Admin Dose Reason Admin Sodium 1,000 ml @ Q1H STAT 11/01/18 DC 11/01/18 Chloride 1,000 mls/hr IV 12:34 12:56 11/01/18 13:33 Aspirin 325 mg ONCE STAT 11/01/18 DC (Aspirin) PO 12:34 11/01/18 12:47 Sodium 1,000 ml @ Q1H STAT 11/01/18 DC Chloride 1,000 mls/hr IV 12:45 11/01/18 13:44 Procedures/MDM Ordering MD: KIRBY AYALA DO Location: E/R Room/Bed: PROCEDURE: CT ABDOMEN AND PELVIS WITHOUT CONTRAST. CLINICAL INDICATION: Right-sided abdominal pain TECHNIQUE: CT scan of the abdomen and pelvis without contrast was performed on a multidetector high-resolution CT scanner. The patient was scanned without intravenous contrast. Coronal and sagittal reformatted images were obtained from the axial source images. Images were reviewed on a high-resolution PACS workstation. The total exam CTDI equals 5.3 mGy and the total exam DLP equals 266 mGy-cm. One or more of the following dose reduction techniques were used: Automated exposure control. Adjustment of the mA and/or kV according to patient size. Use of iterative reconstruction technique. DICOM images are available COMPARISON: CT 06/21/2018 FINDINGS: CT abdomen: The lung bases are clear. The heart size is within normal limits. There is no significant pericardial effusion. Hepatic morphology is within normal limits. No gross contour deforming masses. The gallbladder is identified, containing small gallstones. No evidence of intrahepatic or extrahepatic biliary dilatation. The spleen and pancreas are within normal limits. Both adrenal glands are within normal limits. Both kidneys are in anatomic position. Left-sided renal cyst is noted measuring 2.1 cm. No gross renal/ureteric calculi. No evidence of obstructive uropathy. The visualized GI tract demonstrate normal caliber loops of small and large bowel. No evidence of bowel obstruction. Stool filled loops of large bowel suggestive of constipation. There is thickening of the mendez of the stomach. Atherosclerotic calcification of the aorta is identified. There is no same retroperitoneal lymphadenopathy. CT pelvis: The bladder is distended. Uterus is mildly atrophic. The rectosigmoid colon demonstrates stool and diverticulosis. No significant free fluid. No pelvic lymphadenopathy. The visualized osseous structures demonstrates degenerate changes and grade 1 anterolisthesis of L4-L5. IMPRESSION: 1. No evidence of bowel obstruction. Stool filled loops of large bowel suggestive of constipation. There is thickening of the mendez of the stomach, cannot exclude underlying gastritis. Correlate clinically. 2. No gross renal/ureteric calculi. No obstructive uropathy. 3. Atherosclerotic disease aorta. 4. No evidence of free fluid or free air. No gross focal fluid collections. 5. Sigmoid colon diverticulosis without evidence of diverticulitis. 6. Cholelithiasis. RPTAT: AAPP Physician Andrew Date Time Electronically viewed and signed by Taylro Sharp Physician on 11/01/2018 13:53 JL/ CC: KIRBY AYALA DO [id number] The patient has evidence of thick stomach and I discussed this with her and she needs to see a laminate floor installer for a scope to rule out gastric cancer. No acute pathology on her scan. She does have some gallstones. This could be causing the diarrhea also. However I will treat with some Cipro Flagyl and Bentyl to see if this clears up any kind of atypical bug. Patient feels much better at this time, and vital signs are normal, symptoms have improved. I did give strict instructions to return to the ED if symptoms continue or worsen, patient will otherwise follow-up with primary care physician. Patient understood instructions and agreed to plan. Disclaimer: Inadvertent spelling and grammatical errors are likely due to EHR/dictation software use and do not reflect on the overall quality of patient care. Also, please note that the electronic time recorded on this note does not necessarily reflect the actual time of the patient encounter. Departure Diagnosis: Primary Impression: Diarrhea Diarrhea type: unspecified type Qualified Codes: R19.7 - Diarrhea, unspecified Additional Impression: Gallstones Condition: KIRBY Cochran DO Nov 01, 2018 13:10
[2018-11-01] MEDS ORDERED: CIPR500T4 PO (14:25)
[2018-11-01] MEDS ORDERED: METR500T PO (14:25)
[2018-11-01] MEDS ORDERED: DICY10CA40 PO (14:25)
[2018-11-01 15:02] VITALS: BP 127/89; PULSE 70; RESP 20
== END 2018-11-01 15:03 | disposition home or self-care (01) ==
LOC: E/R 11:46
DX: R19.7 Diarrhea, unspecified (principal); K80.20 Calculus of gallbladder without cholecystitis without obstruction; E11.9 Type 2 diabetes mellitus without complications; Z79.01 Long term (current) use of anticoagulants; Z79.84 Long term (current) use of oral hypoglycemic drugs
CPT/HCPCS: 36415; 74176; 80053; 83690; 85025; 99285; J7030

== ENCOUNTER 2018-11-19 19:22 | Emergency (ER) | payer OTHER, MEDICAID ==
[~2018-11-19] VITALS: Ht 147.3 cm; Wt 51.0 kg
[~2018-11-19 19:22] MED LIST changes: -ACET500C5 PO; +ATOR20TA38 PO; -BENA1TAB2 PO; -CEPH-443 PO; +CHOL100062 PO; +CLOP75TA27 PO; +DICY10CA40 PO; -FAMO-96 PO; -GLYB1TAB2; -HYDR-4011 PO; +LISI-313 PO; +METF500T24 PO; +METR500T PO; -PROVASTATIN; -RISE35TA; +SITA100T11 PO
[2018-11-19 19:35] VITALS: Ht 147.3 cm; Wt 51.0 kg
[2018-11-19] MEDS ORDERED: SOD CHLORIDE 0.9% 500 ML IV STA (21:32)
--- NOTE | 2018-11-19 22:18 | ERD ---
ER Documentation Chief Complaint Chief Complaint states glf about 2 weeks ago, c/o facial pain/bruising HPI 88-year-old female presenting for dizziness after a ground-level fall 2 weeks ag o. She hit her face on the ground. She did not lose consciousness. However she has had intermittent dizziness since then. She saw her primary care doctor today, who referred her here for a CAT scan of her head. She is on clopidogrel chronically. No nausea or vomiting. No vision disturbance, no focal weakness or numbness. ROS All systems reviewed and are negative except as per history of present illness. Medications Home Meds Active Scripts Metronidazole* (Flagyl*) 500 Mg Tablet, 500 MG PO TID for 7 Days, TAB Prov:KIRBY AYALA DO 11/01/18 Ciprofloxacin Hcl* (Ciprofloxacin Hcl*) 500 Mg Tablet, 500 MG PO BID for 7 Days, TAB Prov:KIRBY AYALA DO 11/01/18 Dicyclomine HCl (Dicyclomine HCl) 10 Mg Capsule, 20 MG PO TID PRN for ABDOMINAL CRAMPING, #20 CAP Prov:KIRBY AYALA DO 11/01/18 Reported Medications Lisinopril* (Lisinopril*) 5 Mg Tablet, 5 MG PO DAILY, #30 TAB 11/01/18 Cholecalciferol* (Vitamin D3*) 1,000 Unit Tablet, 1000 UNIT PO DAILY, TAB 11/01/18 Clopidogrel Bisulfate (Clopidogrel) 75 Mg Tablet, 75 MG PO DAILY, #30 TAB 11/01/18 Atorvastatin Calcium* (Atorvastatin Calcium*) 20 Mg Tablet, 20 MG PO QHS, #30 TAB 11/01/18 Sitagliptin* (Januvia*) 100 Mg Tablet, 100 MG PO DAILY, #30 TAB 11/01/18 Metformin Hcl* (Metformin Hcl*) 500 Mg Tablet, 500 MG PO WITH MEALS, #90 TAB 11/01/18 Allergies Allergies: Coded Allergies: No Known Allergy (Unverified , 11/19/18) PMhx/Soc History of Surgery: No Anesthesia Reaction: No Hx Neurological Disorder: No Hx Respiratory Disorders: No Hx Cardiac Disorders: Yes (HTN) Hx Psychiatric Problems: No Hx Miscellaneous Medical Probl: Yes (DM) Hx Alcohol Use: No Hx Substance Use: No Hx Tobacco Use: No Smoking Status: Never smoker FmHx Family History: No diabetes Physical Exam Vitals Vital Signs Date Temp Pulse Resp B/P (MAP) Pulse Ox O2 O2 Flow FiO2 Time Delivery Rate 11/19/18 98.1 86 20 162/68 96 Room Air 23:00 (99) 11/19/18 98.1 92 13 147/70 96 Room Air 21:49 (95) 11/19/18 98.1 88 13 153/74 96 Room Air 20:30 (100) 11/19/18 98.1 85 18 119/56 96 19:35 (77) Physical Exam Const: No acute distress Head: Atraumatic old abrasions to nasal bridge and right forehead. Old periorbital ecchymosis on the right. No facial tenderness to palpation Eyes: Normal Conjunctiva, PERRLA, EOMI ENT: Normal External Ears, Nose and Mouth. No intraoral injury Neck: Full range of motion. No meningismus. Resp: Clear to auscultation bilaterally Cardio: Regular rate and rhythm, no murmurs Abd: Soft, non tender, non distended. Normal bowel sounds Skin: No petechiae or rashes Back: No midline or flank tenderness Ext: No cyanosis, or edema Neur: Awake and alert, oriented x3, normal speech, cranial nerves intact, strength and sensations intact in all 4 extremities Psych: Normal Mood and Affect Results 24 hrs Current Medications Medications Dose Sig/Curtis Start Time Status Last (Trade) Ordered Route PRN Stop Time Admin Dose Reason Admin Sodium 500 ml @ Q1H STAT 11/19/18 DC 11/19/18 Chloride 500 mls/hr IV 21:32 21:50 11/19/18 22:31 Procedures/MDM EMERGENT LABS AND DIAGNOSTIC STUDIES: Radiology Results as interpreted by Radiology below were reviewed by Anita Jessica MD: CT head shows no traumatic abnormalities Initial Nursing notes reviewed. Previous Medical Records requested via the Electronic Health Record. EMERGENCY DEPARTMENT COURSE / MEDICAL DECISION MAKING: Patient is presenting with dizziness after a fall 2 weeks ago with head injury. Given she is on blood thinners, I cannot rule out a subdural hematoma. She is neurovascularly intact on exam. CT head shows no evidence of old intracranial hemorrhage or any other abnormalities. Patient ambulating with a steady gait in the ER. She is stable for discharge with continued outpatient follow-up with her primary care doctor. Concussion precautions discussed. Patient's blood pressure was elevated (>120/80) but appears stable without evidence of hypertensive emergency or urgency. The patient was counseled about the risks of hypertension and urged to pursue outpatient monitoring and therapy within a week with their primary care physician. Departure Diagnosis: Primary Impression: Head injury Encounter type: initial encounter Qualified Codes: S09.90XA - Unspecified injury of head, initial encounter Additional Impression: Dizziness Condition: Stable SHERYL JESSICA MD Nov 19, 2018 22:18
[2018-11-19 23:00] VITALS: BP 162/68; PULSE 86; RESP 20
== END 2018-11-19 23:29 | disposition home or self-care (01) ==
LOC: E/R 19:22
DX: S09.90XA Unspecified injury of head, initial encounter (principal); R42 Dizziness and giddiness; I10 Essential (primary) hypertension; E11.9 Type 2 diabetes mellitus without complications; W18.39XA Other fall on same level, initial encounter; Y92.9 Unspecified place or not applicable; Z79.84 Long term (current) use of oral hypoglycemic drugs
CPT/HCPCS: 70450; 99285; J7040

== ENCOUNTER 2019-04-16 12:09 | Emergency (ER) | payer OTHER, MEDICAID ==
[~2019-04-16] VITALS: Ht 149.9 cm; Wt 48.4 kg
[~2019-04-16 12:09] MED LIST changes: +ACET325T33 PO; +CHOL200056 PO
[2019-04-16 12:17] VITALS: Ht 149.9 cm; Wt 48.4 kg
[2019-04-16] MEDS ORDERED: ACETAMINOPHEN 325 MG TAB PO ONE (13:00)
[2019-04-16 13:54] VITALS: BP 138/70; PULSE 77; RESP 16
--- NOTE | 2019-04-16 14:10 | ERD ---
ER Documentation Chief Complaint Chief Complaint R rib pain p fall Saturday; inspiratory pain HPI Patient is an 88-year-old female with hypertension and diabetes who presents with a trip and fall. She hit the side of her bed on the right chest. She has right-sided rib pain. She fell a few days ago. She has had no treatment as of yet. Upon review of old medical records the patient has multiple visits to the ER for various complaints. Her primary doctor is Dr. Avila. ROS All systems reviewed and are negative except as per history of present illness. Medications Home Meds Active Scripts Acetaminophen* (Tylenol*) 325 Mg Tablet, 2 TAB PO Q8 PRN for PAIN AND OR ELEVATED TEMP, #20 TAB Prov:LIZZ MARKS MD 04/16/19 Reported Medications Cholecalciferol (Vitamin D3) (Vitamin D-3) 2,000 Unit Tablet, 2000 UNIT PO DAILY, TAB 04/16/19 Lisinopril* (Lisinopril*) 5 Mg Tablet, 5 MG PO DAILY, #30 TAB 11/01/18 Clopidogrel Bisulfate (Clopidogrel) 75 Mg Tablet, 75 MG PO DAILY, #30 TAB 11/01/18 Atorvastatin Calcium* (Atorvastatin Calcium*) 20 Mg Tablet, 20 MG PO QHS, #30 TAB 11/01/18 Sitagliptin* (Januvia*) 100 Mg Tablet, 100 MG PO DAILY, #30 TAB 11/01/18 Metformin Hcl* (Metformin Hcl*) 500 Mg Tablet, 500 MG PO WITH MEALS, #90 TAB 11/01/18 Discontinued Reported Medications Cholecalciferol* (Vitamin D3*) 1,000 Unit Tablet, 1000 UNIT PO DAILY, TAB 11/01/18 Discontinued Scripts Metronidazole* (Flagyl*) 500 Mg Tablet, 500 MG PO TID for 7 Days, TAB Prov:RENETTA AYALASTROLFS A. DO 11/01/18 Ciprofloxacin Hcl* (Ciprofloxacin Hcl*) 500 Mg Tablet, 500 MG PO BID for 7 Days, TAB Prov:RENETTA AYALASTROLFS A. DO 11/01/18 Dicyclomine HCl (Dicyclomine HCl) 10 Mg Capsule, 20 MG PO TID PRN for ABDOMINAL CRAMPING, #20 CAP Prov:RENETTA AYALASTROLFS A. DO 11/01/18 Allergies Allergies: Coded Allergies: No Known Allergy (Unverified , 04/16/19) PMhx/Soc Medical and Surgical Hx: pt denies Surgical Hx History of Surgery: No Anesthesia Reaction: No Hx Neurological Disorder: No Hx Respiratory Disorders: No Hx Cardiac Disorders: Yes (HTN) Hx Psychiatric Problems: No Hx Miscellaneous Medical Probl: Yes (DM) Hx Alcohol Use: No Hx Substance Use: No Hx Tobacco Use: No Smoking Status: Never smoker FmHx Family History: diabetes Physical Exam Vitals Vital Signs Date Temp Pulse Resp B/P (MAP) Pulse Ox O2 O2 Flow FiO2 Time Delivery Rate 04/16/19 98.0 77 16 138/70 97 Room Air 13:54 (92) 04/16/19 97.4 89 16 145/70 97 12:17 (95) Physical Exam Const: No acute distress Head: Atraumatic Eyes: Normal Conjunctiva ENT: Normal External Ears, Nose and Mouth. Neck: Full range of motion. No meningismus. Resp: Clear to auscultation bilaterally Cardio: Regular rate and rhythm, no murmurs Abd: Soft, non tender, non distended. Normal bowel sounds Skin: No petechiae or rashes Back: No midline or flank tenderness Ext: Right-sided rib pain with palpation which reproduces her pain, no crepitus Neur: Awake and alert Psych: Normal Mood and Affect Results 24 hrs Current Medications Medications Dose Sig/Curtis Start Time Status Last (Trade) Ordered Route PRN Stop Time Admin Dose Reason Admin 650 mg ONCE ONCE 04/16/19 DC 04/16/19 Acetaminophen PO 13:00 04/16/19 13:52 (Tylenol 13:01 Tab) Procedures/MDM Rib x-ray series read by radiology. Patient is an 88-year-old female presents with rib pain after a fall which was a trip and fall. She has no obvious rib fracture or dislocation. X-ray shows a p ossible infiltrate but she has no signs clinically of pneumonia and I doubt pneumonia at this time. She will need to follow-up closely with Dr. Avila. She will likely need further work-up for a possible neoplasm seen on her x-ray and this was explained to her. She can return for any worsening symptoms. She should follow-up with Dr. Avila within the next 24 to 48 hours. She was given Tylenol for pain. Departure Diagnosis: Primary Impression: Rib pain Condition: Fair Patient Instructions: Rib Contusion Referrals: CLARIBEL AVILA MD Additional Instructions: Call your primary care doctor TOMORROW for an appointment during the next 1-2 days.See the doctor sooner or return here if your condition worsens before your appointment time. LIZZ MARKS MD Apr 16, 2019 14:10
== END 2019-04-16 13:50 | disposition home or self-care (01) ==
LOC: E/R 12:09
DX: R07.81 Pleurodynia (principal); I10 Essential (primary) hypertension; E11.9 Type 2 diabetes mellitus without complications; Z79.84 Long term (current) use of oral hypoglycemic drugs; Z79.01 Long term (current) use of anticoagulants
CPT/HCPCS: 71100